=== PATIENT | female | born 1980 | race Caucasian/White ===

== ENCOUNTER 2016-07-08 07:21 | Emergency (ER) | payer OTHER ==
[~2016-07-08] VITALS: Ht 170.2 cm; Wt 100.5 kg
[2016-07-08 07:24] VITALS: Ht 170.2 cm; Wt 100.5 kg
[2016-07-08] MEDS ORDERED: ONDANSETRON INJ 2 MG/ML 2 ML VIAL IV STA (07:35)
[2016-07-08] MEDS ORDERED: SODIUM CHLORIDE 0.9% 1000ML 1,000 ML IV STA (07:35)
--- NOTE | 2016-07-08 07:40 | EMERGENCY ROOM VISIT NOTE ---
History First contact with patient: 07:27 Chief Complaint: BACK PAIN Stated Complaint: PAIN IN LOWER BACK FROM KIDNEY INFECTION History of Present Illness The patient is a 36 year old female who presents to the Emergency Room with complaints of low back pain and nausea. The patient states her symptoms started approximately 3 weeks ago. She states she had achiness in the low back and lower abdominal cramping. The patient states his symptoms worsened and she was seen at [facility] 3 days ago. She was diagnosed with urinary tract infection. She had a negative influenza. She was started on Cipro. She states that her symptoms are not improving. She rates her discomfort a 9/10. The pain is diffuse in the abdomen and across the low back. She reports diarrhea and nausea. She denies vomiting. She denies any fevers, chest pain, trouble breathing, cough, dysuria, urgency, frequency, vaginal bleeding or vaginal discharge. Review of Systems A 10 system review of systems was completed with positives and pertinent negatives listed in the HPI. Past Medical/Surgical History Surgical Problems: (1) History of appendectomy Social History Smoking Status: Current Every Day Smoker Housing Status: lives with family Current/Historical Medications Scheduled Ciprofloxacin Hcl (Cipro), 500 MG PO Q12 Metronidazole (Flagyl), 500 MG PO TID Multivitamin (Multivitamin), 1 TAB PO DAILY [probiotic], 1 CAN PO DAILY Scheduled PRN Hydrocodone/Acetaminophen 5MG/325MG (Novi 5MG/325MG), 1 TABLET PO Q4H PRN for Pain Promethazine Hcl (Phenergan), 25 MG PO Q6H PRN for Nausea Allergies Coded Allergies: No Known Allergies (Unverified , 07/08/16) Physical Exam Vital Signs Date Time Temp Pulse Resp B/P Pulse Ox O2 Delivery O2 Flow Rate FiO2 07/08/16 10:54 70 18 142/71 100 07/08/16 09:17 37.5 64 16 124/72 100 Room Air 07/08/16 07:24 36.6 108 18 166/97 98 Room Air Physical Exam VITALS: Vitals are noted on the nurse's note and reviewed by myself. Vital signs stable. The patient is afebrile. GENERAL: This is a 36-year-old female, in no acute distress, nondiaphoretic, well-developed well-nourished. SKIN: The skin was without rashes, erythema, edema, or bruising. There is no tenting of the skin. Capillary reflex less than 2 seconds. HEAD: Normocephalic atraumatic. EARS: The external ears are normal in appearance. EYES: Pupils equal round and reactive to light and accommodation. Conjunctivae without injection, sclerae without icterus. Extraocular movements intact. NOSE: Patent, turbinates without inflammation or discharge. MOUTH: Mucous membranes moist. Tonsils are not enlarged. Pharynx without erythema or exudate. Uvula midline. Airway patent. Tongue does not deviate. NECK: Supple without nuchal rigidity. No JVD. HEART: Regular rate and rhythm without murmurs gallops or rubs. LUNGS: Clear to auscultation bilaterally without wheezes, rales or rhonchi. No retractions or accessory muscle use. ABDOMEN: Positive bowel sounds x 4. Soft, mild diffuse tenderness, without masses or organomegaly. : The external genitalia is normal in appearance. There is a moderate amount of whitish discharge. There is no cervical motion tenderness. There is no adnexal mass or tenderness. Pelvic cultures were obtained. A female RN was present for the examination. MUSCULOSKELETAL: No muscle atrophy, erythema, or edema noted. Full range of motion in all extremities. Normal gait. Strength 5/5 throughout. NEURO: Patient was alert and oriented to person place and time. No focal neurological deficits. Medical Decision & Procedures Laboratory Results 07/08/16 07:40 Red Blood Count 4.18, Mean Corpuscular Volume 91.6, Mean Corpuscular Hemoglobin 31.6, Mean Corpuscular Hemoglobin Concent 34.5, Mean Platelet Volume 9.8, Neutrophils (%) (Auto) 68.2, Lymphocytes (%) (Auto) 19.6, Monocytes (%) (Auto) 8.0, Eosinophils (%) (Auto) 3.6, Basophils (%) (Auto) 0.5, Neutrophils # (Auto) 5.05, Lymphocytes # (Auto) 1.45, Monocytes # (Auto) 0.59, Eosinophils # (Auto) 0.27, Basophils # (Auto) 0.04 07/08/16 07:40 Test 07/08/16 07:40 07/08/16 07:50 07/08/16 08:50 07/08/16 09:50 White Blood Count 7.41 K/uL (4.8-10.8) Red Blood Count 4.18 M/uL (4.2-5.4) Hemoglobin 13.2 g/dL (12.0-16.0) Hematocrit 38.3 % (37-47) Mean Corpuscular Volume 91.6 fL (80-100) Mean Corpuscular Hemoglobin 31.6 pg (25-34) Mean Corpuscular Hemoglobin Concent 34.5 g/dl (32-36) Platelet Count 307 K/uL (130-400) Mean Platelet Volume 9.8 fL (7.4-10.4) Neutrophils (%) (Auto) 68.2 % Lymphocytes (%) (Auto) 19.6 % Monocytes (%) (Auto) 8.0 % Eosinophils (%) (Auto) 3.6 % Basophils (%) (Auto) 0.5 % Neutrophils # (Auto) 5.05 K/uL (1.4-6.5) Lymphocytes # (Auto) 1.45 K/uL (1.2-3.4) Monocytes # (Auto) 0.59 K/uL (0.11-0.59) Eosinophils # (Auto) 0.27 K/uL (0-0.5) Basophils # (Auto) 0.04 K/uL (0-0.2) RDW Standard Deviation 42.7 fL (36.4-46.3) RDW Coefficient of Variation 12.8 % (11.5-14.5) Immature Granulocyte % (Auto) 0.1 % Immature Granulocyte # (Auto) 0.01 K/uL (0.00-0.02) Anion Gap 12.0 mmol/L (3-11) Est Creatinine Clear Calc Drug Dose 172.4 ml/min Estimated GFR () 141.0 Estimated GFR (Non- 121.7 BUN/Creatinine Ratio 14.3 (10-20) Calcium Level 8.3 mg/dl (8.5-10.1) Total Bilirubin 0.7 mg/dl (0.2-1) Aspartate Amino Transf (AST/SGOT) 23 U/L (15-37) Alanine Aminotransferase (ALT/SGPT) 24 U/L (12-78) Alkaline Phosphatase 65 U/L (45-117) Total Protein 6.7 gm/dl (6.4-8.2) Albumin 3.4 gm/dl (3.4-5.0) Globulin 3.3 gm/dl (2.5-4.0) Albumin/Globulin Ratio 1.0 (0.9-2) Lipase 151 U/L (73-393) Human Chorionic Gonadotropin, Qual NEG (NEG) Urine Color YELLOW Urine Appearance CLEAR (CLEAR) Urine pH 6.5 (4.5-7.5) Urine Specific [place] 1.010 (1.000-1.030) Urine Protein NEG (NEG) Urine Glucose (UA) NEG (NEG) Urine Ketones NEG (NEG) Urine Occult Blood NEG (NEG) Urine Nitrite NEG (NEG) Urine Bilirubin NEG (NEG) Urine Urobilinogen NEG (NEG) Urine Leukocyte Esterase MODERATE (NEG) Urine WBC (Auto) 1-5 /hpf (0-5) Urine RBC (Auto) 0-4 /hpf (0-4) Urine Hyaline Casts (Auto) 1-5 /lpf (0-5) Urine Epithelial Cells (Auto) >30 /lpf (0-5) Urine Bacteria (Auto) NEG (NEG) Date/Time Source Procedure Growth Status 07/08/16 08:50 Stool C.difficile Toxin B Gene (PCR) - Final No C. difficile toxin B gene detected Complete 07/08/16 09:50 Vaginal Swab Trichomonas Preparation - Final Complete Medications Administered Medications (Trade) Dose Ordered Sig/Rocael Route Start Time Stop Time Status Last Admin Dose Admin Sodium Chloride (Nss 1000ml) 1,000 ml @ 999 mls/hr Q1H1M STAT IV 07/08/16 07:35 07/08/16 08:35 DC 07/08/16 07:48 999 MLS/HR Ondansetron HCl (Zofran Inj) 4 mg NOW STAT IV 07/08/16 07:35 07/08/16 07:38 DC 07/08/16 07:48 4 MG Morphine Sulfate 4 mg 4 mg NOW STAT IV 07/08/16 07:57 07/08/16 07:58 DC 07/08/16 08:11 4 MG Promethazine HCl 25 mg/Sodium Chloride 51 ml @ 204 mls/hr NOW STAT IV 07/08/16 08:29 07/08/16 08:43 DC 07/08/16 08:45 204 MLS/HR Ceftriaxone Sodium/Dextrose (Rocephin Inj/D5 25ml) 27.5 ml @ 55 mls/hr ONE STAT IV 07/08/16 10:02 07/08/16 10:31 DC 07/08/16 10:42 55 MLS/HR Azithromycin (Zithromax Tab) 1,000 mg NOW STAT PO 07/08/16 10:02 07/08/16 10:05 DC 07/08/16 10:42 1,000 MG ED Course The patient was seen and examined. Previous visits were reviewed. The patient does not have a fever or leukocytosis. She does not have any significant electrolyte abnormalities. Serum hCG was negative. Lipase was not elevated. Urinalysis suggests contamination. C. difficile is negative. Pelvic and stool cultures are pending. The patient was hydrated with normal saline She was given 4 mg IV Zofran and 4 mg IV morphine. Her pain markedly improved but the vomiting persisted She was then given 25 mg IV Phenergan with marked improvement in her nausea. The patient presents to the emergency department with nonspecific lower back and lower pelvic pain. She has had nausea and some diarrhea. She is afebrile and nontoxic in appearance. Her symptoms have been persistent for at least 3 weeks. She has pretreated with Cipro for a possible urinary tract infection. This may represent a pelvic infection. The patient did have a moderate amount of white discharge on pelvic examination. She will empirically be treated with 250 mg IV Rocephin and 1 g of oral Zithromax. Given the discharge and the ongoing diarrhea, I will place her on Flagyl to cover for potential infectious diarrhea and to treat potential bacterial vaginosis. The patient does not have significant abdominal tenderness. I discussed performing CT imaging of the abdomen and pelvis with the patient. She would like to defer CT imaging and I am in agreement with this. She should return to the emergency Department with any worsening symptoms. She was discharged home with prescriptions for Flagyl, Phenergan and Novi. The case was discussed with Dr. Mackay who agrees with the assessment and treatment plan Medical Decision DIFFERENTIAL DIAGNOSIS: Pelvic inflammatory disease, ovarian cyst, ovarian torsion, ovarian rupture, , ectopic , endometriosis, endometritis Hepatitis, cholecystitis, cholangitis, biliary colic, pancreatitis , pneumonia, subdiaphragmatic abscess, appendicitis, inguinal hernia, nephrolithiasis, inflammatory bowel disease, mesenteric adenitis, peptic ulcer disease, GERD, gastritis, pancreatitis, myocardial infarction, pericarditis, ruptured aortic aneurysm, appendicitis, gastroenteritis, bowel obstruction, splenic infarct, diverticulitis, mesenteric ischemia, metabolic, peritonitis, among others. [place] [facility] Monitoring Program Search Results: patient reviewed within database, no issues identified Impression Primary Impression: Back pain Additional Impressions: Lower abdominal pain Nausea Departure Information Dispostion Home / Self-Care Condition GOOD Prescriptions Promethazine Hcl (Phenergan) 25 Mg Tab 25 MG PO Q6H Y for Nausea, #15 TAB Prov: Patsy Servin PA-C 07/08/16 Hydrocodone/Acetaminophen 5MG/325MG (Novi 5MG/325MG) Tab 1 TABLET PO Q4H Y for Pain, #10 TAB For Initial Treatment Prov: Patsy Servin PA-C 07/08/16 Metronidazole (Flagyl) 500 Mg Tab 500 MG PO TID for 10 Days, #30 TAB Prov: Patsy Servin PA-C 07/08/16 Referrals No Doctor, Assigned (PCP) Patient Instructions ED Vaginosis Bacterial, [facility], STD Poss Additional Instructions Novi 1 tablet every 6 hours if needed for severe pain. Do not drink or drive while taking Novi and do not take with Tylenol. Phenergan as prescribed, as needed for nausea and vomiting Flagyl every 8 hours for 10 days; do not drink alcohol while taking the Flagyl Return to the emergency Department with any worsening symptoms, high fevers Stool cultures and pelvic cultures are still pending. You may contact the emergency department [phone] in 4-5 days to check the results of the cultures. 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 Problem Qualifiers Primary Impression: Back pain Back pain location: low back pain Chronicity: acute Back pain laterality: bilateral Sciatica presence: without sciatica Qualified Codes: M54.5 - Low back pain
[2016-07-08] MEDS ORDERED: CIPR-255 PO (07:50)
[2016-07-08] MEDS ORDERED: MULT-506 PO (07:50)
[2016-07-08] MEDS ORDERED: probiotic PO (07:50)
[2016-07-08] MEDS ORDERED: MoRPHine SULFATE 4 MG/ML 1 ML CARP\\VIAL IV STA (07:57)
[2016-07-08] MEDS ORDERED: PROMETHAZINE HCL INJ 25 MG in SODIUM CHLORIDE 0.9% 50ML 50 ML IV STA (08:29)
[2016-07-08] MEDS ORDERED: PROMETHAZINE HCL INJ 25 MG/ML 1 ML VIAL ONE (08:38)
[2016-07-08 08:53] LABS: BASO % 0.5 %; BASO ABS # 0.04 K/uL (0-0.2); COMPLETE YES; EOS % 3.6 %; HEMATOCRIT 38.3 % (37-47); IG% 0.1 %; LYMPH % 19.6 %; LYMPH ABS # 1.45 K/uL (1.2-3.4); MEAN CELL VOLUME 91.6 fL (80-100); MEAN CORPUSCULAR HEMOGLOBIN 31.6 pg (25-34); MEAN CORPUSCULAR HGB CONC 34.5 g/dl (32-36); MEAN PLATELET VOLUME 9.8 fL (7.4-10.4); NEUT % 68.2 %; PLATELET COUNT 307 K/uL (130-400); RED BLOOD COUNT 4.18 M/uL (4.2-5.4); WHITE BLOOD COUNT 7.41 K/uL (4.8-10.8)
[2016-07-08 08:57] LABS: URINE APPEARANCE CLEAR (CLEAR); URINE BILIRUBIN NEG (NEG); URINE COLOR YELLOW; URINE EPITHELIAL CELL AUTO >30 /lpf (0-5); URINE NITRITE NEG (NEG); URINE PH 6.5 (4.5-7.5); UROBILINOGEN NEG (NEG); ZZUR CULT IF INDIC CLEAN CATCH NO
[2016-07-08 08:59] LABS: MANUAL MICROSCOPIC REQUIRED? NO; REVIEW REQ? NO
[2016-07-08 09:09] LABS: BUN/CREATININE RATIO 14.3 (10-20); CALCIUM 8.3 mg/dl (8.5-10.1); CREATININE 0.56 mg/dl (0.60-1.20); POTASSIUM 3.7 mmol/L (3.5-5.1)
[2016-07-08 09:15] LABS: PREG INTERNAL NEGATIVE QC NEG CLEAR BACKGROUND; PREG INTERNAL POSITIVE QC POS CONTROL LINE
[2016-07-08 09:17] VITALS: TEMP 37.5
[2016-07-08] MEDS ORDERED: AZITHROMYCIN 250 MG TAB PO STA (10:02)
[2016-07-08] MEDS ORDERED: CEFTRIAXONE SOD INJ 250 MG in DEXTROSE 5% 25ML 25 ML IV STA (10:02)
[2016-07-08] MEDS ORDERED: PROM25TA9 PO (10:06)
[2016-07-08] MEDS ORDERED: METR-163 PO (10:06)
[2016-07-08] MEDS ORDERED: HYDR-5688 PO (10:06)
[2016-07-08 10:54] VITALS: BP 142/71; PULSE 70; O2SAT 100
[2016-07-10 15:33] LABS: CHLAMYDIA TRACH RNA*** NOT DETECTED (NOT DETECTED); GC (NEIS GONORRHOEAE)RNA** NOT DETECTED (NOT DETECTED)
--- NOTE | 2016-07-11 12:05 | Pharmacy Progress Note ---
ED Pharmacist Culture FollowUp Date of Service: Jul 11, 2016. Patient was sent home with a prescription for metronidazole, which should cover the Gardnerella growing from the patient's genital culture.
== END 2016-07-08 11:15 | disposition home or self-care (01) ==
LOC: C.EDB 07:22 → C.EDA 11:15
DX: M54.5 Low back pain (principal); R10.30 Lower abdominal pain, unspecified; R11.0 Nausea; R19.7 Diarrhea, unspecified; F17.200 Nicotine dependence, unspecified, uncomplicated